=== PATIENT | female | born 1980 | race Caucasian/White ===

== ENCOUNTER 2020-06-11 22:28 | Emergency (ER) | payer MEDICAID ==
[~2020-06-11] VITALS: Ht 165.1 cm; Wt 47.6 kg
[2020-06-11 22:36] VITALS: BP 149/79
--- NOTE | 2020-06-11 22:45 | NUR ---
39 Y/O M BIBA HOMELESS FROM [facility] FOR CRYSTAL METH USE AND EAR FOREIGN BODY FOR PAST 2 WEEKS. PT STATED SHE TRIED METH FOR THE FIRST TIME YESTERDAY AND IS "COMING DOWN FROM IT NOW". PT ALSO STATED SHE HAS PAIN AND CANT HEAR PROPERLY ON HER R EAR. 11/12 PAIN STATES "IT FEELS LIKE SOMETHING IS MOVING". C/O CHEST PAIN AND COUGH FOR PAST 2 WEEKS. LMP: NONE. ALLERGY TO HALOPERIDOL. A&O X4, AMBULATORY WITH STEADY GAIT.
[2020-06-11] MEDS ORDERED: KEP500 PO (23:19)
--- NOTE | 2020-06-11 23:42 | NUR ---
Patient discharged with v/s stable. Written and verbal after care instructions given and explained. Patient alert, oriented and verbalized understanding of instructions. Ambulatory with steady gait. All questions addressed prior to discharge. ID band removed. Patient advised to follow up with PMD. Rx of KEJACK given. Patient educated on indication of medication including possible reaction and side effects. Opportunity to ask questions provided and answered.
[2020-06-11 23:43] VITALS: BP 137/88
== END 2020-06-11 23:43 | disposition home or self-care (01) ==
LOC: MED 22:28
DX: H61.21 Impacted cerumen, right ear (principal); Z76.0 Encounter for issue of repeat prescription; Z59.0 Homelessness; Z88.5 Allergy status to narcotic agent
CPT/HCPCS: 99283

== ENCOUNTER 2020-07-17 | Emergency (ER) | payer MEDICAID ==
[2020-07-17] VITALS: BP 114/57
[~2020-07-17] VITALS: Ht 165.1 cm; Wt 47.6 kg
[~2020-07-17] MED LIST: KEP500 PO
--- NOTE | 2020-07-17 | NUR ---
PATIENT BIBA FOR C/O POSSIBLE SEIZURE. PATIENT STATING "I WOKE UP AT 7-ELEVEN AND DIDN'T KNOW WHERE I WAS." A & O X4. PATIENT DENIES HITTING HEAD. VSS, ON ROOM AIR. NO NOTED RESPIRATORY DISTRESS. BLOOD SUGAR 83. SKIN IS WARM, DRY AND INTACT. BILATERAL PUPILS BRISK AND PERRLA. SPEECH IS CLEAR. PATIENT DENIES PAIN AT THIS TIME. SEIZURE PRECAUTIONS IN PLACE, BED RAILS UP X2. BED IS LOCKED AND IN LOWEST POSITION. MEDICAL HX: "EPILEPSY", PER [facility] SCHIZOPHRENIA ALLERGIES: HALOPERIDOL
--- NOTE | 2020-07-17 00:02 | NUR ---
PT MARCELLO BLS. TAKEN TO BED 6
--- NOTE | 2020-07-17 00:19 | NUR ---
ERMD AT BEDSIDE.
[2020-07-17] MEDS ORDERED: chlordiazePOXIDE 25 MG CAP PO STA (00:28)
[2020-07-17] MEDS ORDERED: LORazepam 1 MG TAB PO STA (00:28)
[2020-07-17] MEDS ORDERED: levETIRAcetam 500 MG TAB PO STA (00:28)
[2020-07-17 00:42] LABS: BILIRUBIN,URINE NEGATIVE (NEGATIVE); BLOOD, URINE NEGATIVE (NEGATIVE); LEUKOCYTE ESTERASE ,URINE NEGATIVE (NEGATIVE); NITRITE, URINE NEGATIVE (NEGATIVE); UGLUCOSE NEGATIVE (NEGATIVE)
[2020-07-17 00:43] LABS: APPEARANCE,URINE CLEAR (CLEAR); COLOR,URINE YELLOW (YELLOW)
[2020-07-17 00:51] LABS: BARBITURATE, URINE NEGATIVE ng/ml (NEG <=200); BENZODIAZEPINE, URINE POSITIVE ng/mL (NEG <=200); CANNABINOID, URINE NEGATIVE ng/mL (NEG <=50); COCAINE, URINE NEGATIVE ng/mL (NEG <=300); OPIATE, URINE NEGATIVE ng/mL (NEG <=2000); PHENCYCLIDINE SCREEN,URINE NEGATIVE ng/mL (NEG <=25)
--- NOTE | 2020-07-17 01:07 | NUR ---
Patient appears to be resting comfortably in bed. Vital Signs within normal limits. Respirations even and unlabored. Seizure precautions in place.
--- NOTE | 2020-07-17 02:58 | NUR ---
Patient appears to be resting comfortably in bed. Vital Signs within normal limits. Respirations even and unlabored.
[2020-07-17] MEDS ORDERED: KEP500 PO (03:29)
--- NOTE | 2020-07-17 04:02 | NUR ---
Patient appears to be resting comfortably in bed. Vital Signs within normal limits. Respirations even and unlabored.
--- NOTE | 2020-07-17 05:04 | NUR ---
Patient appears to be resting comfortably in bed. Vital Signs within normal limits. Respirations even and unlabored. Seizure precautions in place.
--- NOTE | 2020-07-17 06:40 | NUR ---
EXPLAINED TO PATIENT THAT A CONSULT WITH [facility] WAS PLACED AND THAT SHE WILL BE SEEN WHEN THEY ARRIVE. PATIENT VERBALIZED UNDERSTANDING.
[2020-07-17 06:41] VITALS: BP 112/68
--- NOTE | 2020-07-17 06:41 | NUR ---
Patient discharged with v/s stable. Written and verbal after care instructions given and explained. Patient alert, oriented and verbalized understanding of instructions. Ambulatory with steady gait. All questions addressed prior to discharge. ID band removed. Patient advised to follow up with PMD. Rx sally WILKINS given. Patient educated on indication of medication including possible reaction and side effects. Opportunity to ask questions provided and answered. Addendum: 07/17/20 at 0657 by [facility] PATIENT DISCHARGED WITH FOOD PER REQUEST.
== END 2020-07-17 06:57 | disposition home or self-care (01) ==
LOC: MED
DX: R56.9 Unspecified convulsions (principal); F10.10 Alcohol abuse, uncomplicated
CPT/HCPCS: 80305; 81003; 81025; 99284